=== PATIENT | male | born 1950 | race American Indian/Alaskan Native ===

== ENCOUNTER 2016-12-17 12:00 | Emergency (ER) | payer OTHER ==
[2016-12-17 12:04] VITALS: BMI 22.1
[2016-12-17 12:07] VITALS: TEMP 99
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
--- NOTE | 2016-12-17 13:34 | CT ---
PROCEDURE: CT scan maxillofacial skeleton dated 12/17/2016 HISTORY: Puncture wound, pain r/o FB COMPARISON: No prior study available comparison. TECHNIQUE: Contiguous helical/ transaxial CT images of the maxillofacial bones were obtained. Coronal and sagittal reformats were generated. Radiation dose: Total exam DLP = 713.38 mGy-cm. This CT exam was performed using one or more of the following dose reduction techniques: Automated exposure control, adjustment of the mA and/or kV according to patient size, and/or use of iterative reconstruction technique. FINDINGS: NASAL BONES: Nasal bones intact. No evidence of acute displaced fracture. . There is however mild soft tissue swelling of centrally and to the right at the level of the bridge of the nose extending slightly medially and superiorly to the level of the glabella of. Bubble of subcutaneous air is also seen medially near the superomedial aspect of the right anterior orbit. No definitive radiopaque foreign body. ORBITS: Bony orbits are otherwise intact. Globes intact and lenses appropriately located. There are no retrobulbar hemorrhages or collections seen. Extraocular musculature and optic nerves unremarkable. PARANASAL SINUSES/ MASTOIDS: There appears to be mild mucosal thickening within the ethmoid air complex extending superiorly into the frontal region. Mild on the polypoid like mucosal thickening both maxillary antra. MAXILLA: Maxilla including the anterior nasal spine intact MANDIBLE/ TEMPOROMANDIBULAR JOINTS: Mandible is intact. . The mandibular condyles are appropriately located. SKULL BASE: Skull base intact. TEMPORAL BONES: The visualized temporal bones unremarkable. Mastoid air complexes and middle ear canal well-developed and currently well-aerated with no evidence of mucosal thickening - opacification. OTHER FINDINGS: There may be a tiny laryngocele adjacent to the lateral aspect of the right hyoid bone. IMPRESSION: Mild soft tissue swelling centrally into the right at the level of the nasal bridge and extends medially and superiorly slightly with a small bubble of subcutaneous air. No evidence of radiopaque foreign body seen. .
[2016-12-17 14:18] VITALS: BP 131/77; PULSE 83; RESP 16; O2SAT 98
== END 2016-12-17 14:18 | disposition home or self-care (01) ==
LOC: ED 12:00
DX: S01.81XA Laceration without foreign body of other part of head, initial encounter (principal); W25.XXXA Contact with sharp glass, initial encounter; Y93.89 Activity, other specified; Y92.89 Other specified places as the place of occurrence of the external cause; Y99.8 Other external cause status